=== PATIENT | female | born 1960 | race Caucasian/White ===

== ENCOUNTER 2018-10-21 14:38 | Outpatient (CLI) | payer MEDICAID | END 2018-10-21 14:39 | disposition home or self-care (01) | LOC: RAD 14:38 ==

== ENCOUNTER 2018-11-04 15:47 | Emergency (ER) | payer MEDICAID ==
[2018-11-04 16:16] VITALS: BMI 33.9
[2018-11-04 16:21] VITALS: BP 145/78; PULSE 74; RESP 18; TEMP 97.2; O2SAT 97
== END 2018-11-04 17:32 | disposition left against medical advice (07) ==
LOC: ED 15:47
DX: Z02.89 Encounter for other administrative examinations (principal); M79.672 Pain in left foot